=== PATIENT | female | born 1980 | race Caucasian/White ===

== ENCOUNTER → 2016-09-23 | Outpatient (CLI) | payer BC ==
[~2016-09-23] MED LIST: COLACE100 MG PO; LEVOTHYROXINE300 MCG PO; MOTRIN-DPS800 MG PO; PERCOCET 5-3251 EACH PO; PRENATAL VIT1 TAB PO; [UNRECOGNIZED DRUG - REMARK]
== END | disposition home or self-care (01) ==
LOC: RAD.S 15:00
DX: N63 Unspecified lump in breast (principal)